=== PATIENT | female | born 1970 | race Caucasian/White ===

== ENCOUNTER → 2024-09-20 13:34 | Outpatient (CLI) | payer OTHER, SELFPAY ==
--- NOTE | 2024-09-20 13:41 | DI.RAD.S_ITS ---
PROCEDURE: XR LUMBAR SPINE MIN 4V INDICATIONS: Low back pain, unspecified TECHNIQUE: 5 views of the lumbar spine acquired, including flexion and extension views. COMPARISON: [facility] [place], [place], XR LUMBAR SPINE FLEXION EXTENSION, 03/03/2018, 14:08. FINDINGS: Bones: Mild dextrocurvature of the lumbar spine. Straightening of the lumbar spine. Vertebral body height of the lumbar spine well-maintained. 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 Moderate lower lumbar facet arthropathy. No dynamic instability. IMPRESSION: Degenerative changes as described above. Dictated by: Sissy Forbes M.D. on 09/20/2024 at 17:45 Approved by: Sissy Forbes M.D. on 09/20/2024 at 17:46
== END ==
LOC: RAD 13:39
PROVIDERS: Referring Provider Physician Assistant; Visit Provider Physician Assistant
DX: M51.360 Other intervertebral disc degeneration, lumbar region with discogenic back pain only (principal); M47.816 Spondylosis without myelopathy or radiculopathy, lumbar region
CPT/HCPCS: 72110